=== PATIENT | female | born 1990 | race American Indian/Alaskan Native ===

== ENCOUNTER 2021-08-06 15:23 | Inpatient (IN) | payer MEDICAID ==
[~2021-08-06] VITALS: Ht 165.1 cm; Wt 50.8 kg
[2021-08-06] MEDS ORDERED: Insulin Reg/NS 100units/100mL 100 ML IV SCH ×2 (15:50→19:10)
[2021-08-06] MEDS ORDERED: insulin regular, human U-100 3ml vial - multi-dose IV PRN ×3 (15:50→19:40)
[2021-08-06] MEDS ORDERED: ondansetron/PF 4mg/2ml inj IV ONE (15:50)
[2021-08-06] MEDS ORDERED: normal saline 1000ML IV soln IV ONE (15:50)
[2021-08-06 16:23] LABS: ABG BASE EXCESS -19.6 mmol/L (-2.0-2.0); ABG HCO3 5.4 mmol/L (22.0-26.0); ABG PCO2 (T) 13.1 mmHg (32.0-45.0); ABG PO2 (T) 99.2 mmHg (75.0-100.0); ALLEN'S TEST POSITIVE; FCOHb 0.9 % (0.0-3.9); FMetHb 0.3 % (0.0-1.5); FO2Hb 94.8 % (94-97); TOTAL HEMOGLOBIN 12.1 G/dl (12.0-16.0)
[2021-08-06 16:30] LABS: BASOPHILS # (AUTO) 0.1 X10'3 (0-0.2); BASOPHILS % (AUTO) 0.5 % (0-1); EOSINOPHILS % (AUTO) 0.1 % (0-6); LYMPHOCYTES # (AUTO) 2.8 X10'3 (1.1-4.8); LYMPHOCYTES % (AUTO) 15.8 % (21-51); MONOCYTES # (AUTO) 1.5 X10'3 (0-0.9); MONOCYTES % (AUTO) 8.4 % (2-12); NEUTROPHILS # (AUTO) 13.6 X10'3 (1.8-7.7); NEUTROPHILS % (AUTO) 75.2 % (42-75)
--- NOTE | 2021-08-06 16:42 | NUR ---
[facility] [place] [phone]
[2021-08-06] MEDS ORDERED: metoclopramide 5 mg/ml inj IV ONE (16:45)
[2021-08-06 16:52] LABS: CLARITY,URINE CLEAR (Clear); COLOR,URINE YELLOW (Yellow); GLUCOSE, URINE >=1000 mg/dl (Neg); KETONES,URINE >=80 mg/dl (Neg); LEUKOCYTE ESTERASE ,URINE NEGATIVE (Neg); NITRITES, URINE NEGATIVE (Neg); OCCULT BLOOD,URINE NEGATIVE (Neg); PH,URINE 5.5 (4.8-8.0); PROTEIN,URINE NEGATIVE (Neg); UROBILINOGEN,URINE 0.2 E.U/dL (0.2-1.0)
[2021-08-06 16:53] LABS: ALANINE AMINOTRANSFERASE 203 U/L (12-78); ALBUMIN 3.7 G/DL (3.4-5.0); ALBUMIN/GLOBULIN RATIO 0.9 (1.1-1.5); ALKALINE PHOSPHATASE 144 IU/L (46-116); ANION GAP 35 (8-16); ASPARTATE AMINO TRANSFERASE 92 U/L (10-37); BILIRUBIN,TOTAL 0.9 MG/DL (0.1-1.0); BLOOD UREA NITROGEN 37 MG/DL (7-18); BUN/CREATININE RATIO 17.1 (6.6-38.0); CALCIUM 8.9 MG/DL (8.5-10.1); CHLORIDE 84 MMOL/L (99-107); CREATININE 2.16 MG/DL (0.40-0.90); ETHANOL < 0.010 GM/DL (0.0-0.010); MAGNESIUM 2.7 MG/DL (1.5-2.4); PHOSPHORUS 6.8 MG/DL (2.3-4.5); SODIUM 128 MMOL/L (135-145); TOTAL PROTEIN 7.9 G/DL (6.4-8.2); eGFR 27 ML/MIN
--- NOTE | 2021-08-06 16:54 | NUR ---
cosme (Friend) has keys to car. [phone]
[2021-08-06 16:56] LABS: URINE AMPHETAMINE SCREEN POSITIVE (Neg); URINE BARBITUATE SCREEN NEGATIVE (Neg); URINE BENZODIAZEPINES SCREEN NEGATIVE (Neg); URINE CANNABINOID SCREEN NEGATIVE (Neg); URINE COCAINE SCREEN NEGATIVE (Neg); URINE METHADONE SCREEN NEGATIVE (Neg); URINE OPIATE SCREEN NEGATIVE (Neg); URINE PHENCYCLIDINE SCREEN NEGATIVE (Neg)
[2021-08-06 16:58] LABS: UA COLLECTION TYPE STRAIGHT CATH
[2021-08-06 17:07] LABS: RBC,URINE NONE SEEN /HPF (0-2); WBC,URINE NONE SEEN /HPF (0-4)
[2021-08-06 17:08] LABS: AMORPHOUS URATES 1+; BACTERIA,URINE NONE SEEN /HPF (Neg); SQUAMOUS EPITHELIAL CELL,UR MODERATE /LPF (FEW)
[2021-08-06 17:09] LABS: HEMATOCRIT 35.1 % (35.0-45.0); HEMOGLOBIN 11.9 g/dl (12.0-16.0); MEAN CORPUSCULAR HEMOGLOBIN 30.6 PG (27.0-31.0); MEAN PLATELET VOLUME 6.3 FL (7.4-10.4); PLATELET COUNT 509 X10'3 (140-440); RED CELL DISTRIBUTION WIDTH 12.7 % (11.5-14.5); WHITE BLOOD COUNT 18.4 X10'3 (4.5-11.0)
[2021-08-06 17:32] LABS: URINE HCG NEGATIVE (NEG)
[2021-08-06 17:34] LABS: GLUCOSE 921 MG/DL (70-104)
[2021-08-06 17:35] LABS: POTASSIUM 7.6 MMOL/L (3.5-5.1); TOTAL CARBON DIOXIDE 9.1 MMOL/L (24-32)
[2021-08-06] MEDS ORDERED: sodium bicarbonate (8.4%) inj. 50 MEQ in dextrose 5%-water 1,000 ML IV ONE (17:50)
[2021-08-06] MEDS ORDERED: potassium Cl 40MEQ/1/2NS 520ml 520 ML IV PRN ×2 (19:10)
[2021-08-06] MEDS ORDERED: Neutra Phos packet PO PRN (19:10)
[2021-08-06] MEDS ORDERED: sodium phosphate inj. 15 MMOL in dextrose 5%-water 250 ML IV PRN (19:10)
[2021-08-06] MEDS ORDERED: acetaminophen 325mg tablet PO PRN ×2 (19:10)
[2021-08-06] MEDS ORDERED: sodium bicarbonate (8.4%) inj. 100 MEQ in dextrose 5% water 500ml 500 ML IV PRN (19:10)
[2021-08-06] MEDS ORDERED: POTASSIUM BICARB 20meq eff tab 20 MEQ TABLET.EFF PO PRN ×2 (19:10)
[2021-08-06] MEDS ORDERED: sodium phosphate inj. 30 MMOL in dextrose 5%-water 250 ML IV PRN (19:10)
[2021-08-06] MEDS ORDERED: potassium CL 20mEq in D5-1/2NS 1,000 ML IV PRN (19:10)
[2021-08-06] MEDS ORDERED: magnesium hydroxide 30ml (MOM) UD suspension PO PRN (19:10)
[2021-08-06] MEDS ORDERED: potassium Cl 20 mEq SR tablet PO PRN ×2 (19:10)
[2021-08-06] MEDS ORDERED: sodium bicarbonate (8.4%) inj. 50 MEQ in dextrose 5% water 500ml 250 ML IV PRN (19:10)
[2021-08-06] MEDS: normal saline 1000ml 1,000 ML IV SCH ×8 (19:18→23:50)
--- NOTE | 2021-08-06 19:53 | NUR ---
BS not falling - per protocol insulin bolus given along with rate increased.
[2021-08-06] MEDS ORDERED: K and/or MAG REPLACEMENT MC SCH (20:00)
[2021-08-06] MEDS ORDERED: enoxaparin 40mg/0.4ml syringe SQ SCH (20:00)
--- NOTE | 2021-08-06 23:35 | NUR ---
Pharmacist consulted on compatability of IV medications (Bicarb, K+ fluids, and Insulin). Pharmacist stated okay to use [place]ton K+ fluids with either Bicarb or Insulin.
[2021-08-06] MEDS: potassium CL 20mEq in D5-1/2NS 1,000 ML IV PRN (23:50)
[2021-08-07] VITALS (12 sets, daily range): BP systolic 98–161; BP diastolic 47–77
[2021-08-07 00:07] LABS: ALANINE AMINOTRANSFERASE 167 U/L (12-78); ALBUMIN 2.9 G/DL (3.4-5.0); ALBUMIN/GLOBULIN RATIO 0.8 (1.1-1.5); ALKALINE PHOSPHATASE 117 IU/L (46-116); ANION GAP 20 (8-16); ASPARTATE AMINO TRANSFERASE 68 U/L (10-37); BILIRUBIN,TOTAL 0.5 MG/DL (0.1-1.0); BLOOD UREA NITROGEN 27 MG/DL (7-18); BUN/CREATININE RATIO 15.7 (6.6-38.0); CALCIUM 7.7 MG/DL (8.5-10.1); CHLORIDE 110 MMOL/L (99-107); CREATININE 1.72 MG/DL (0.40-0.90); GLUCOSE 210 MG/DL (70-104); MAGNESIUM 2.1 MG/DL (1.5-2.4); PHOSPHORUS 2.3 MG/DL (2.3-4.5); POTASSIUM 3.9 MMOL/L (3.5-5.1); SODIUM 147 MMOL/L (135-145); TOTAL CARBON DIOXIDE 17.3 MMOL/L (24-32); TOTAL PROTEIN 6.5 G/DL (6.4-8.2); eGFR 35 ML/MIN
[2021-08-07] MEDS: normal saline 1000ml 1,000 ML IV SCH ×6 (00:10→00:49)
--- NOTE | 2021-08-07 00:20 | NUR ---
Patient here from ER into room CICU 2011. I have received report from Jose TENORIO and had the opportunity to ask questions and assume patient care. Transferred patient from [facility] to ICU bed,attached to cardiac rn. Patient denies pain or nausea. Vital signs stable, sats 95% on RA. IV meds infusing via peripheral IVs.
[2021-08-07] MEDS: ondansetron/PF 4mg/2ml inj IV PRN ×2 (01:42→07:22)
[2021-08-07] MEDS ORDERED: dexmedetomidin/NS 400mcg/100ml 100 ML IV PRN (02:20)
[2021-08-07] MEDS ORDERED: haloperidol lactate 5mg/ml inj IM PRN (02:20)
--- NOTE | 2021-08-07 02:20 | NUR ---
patient restless, agitated, wanting to leave AMA. Educated patient on the importance of continuing the current plan of care. Patient agreed to stay and continue treatment. Dr. Doll notified, orders received.
[2021-08-07] MEDS: potassium CL 20mEq in D5-1/2NS 1,000 ML IV PRN (05:38)
[2021-08-07 06:14] LABS: BASOPHILS % (AUTO) 0.2 % (0-1); EOSINOPHILS % (AUTO) 0.3 % (0-6); HEMATOCRIT 31.5 % (35.0-45.0); HEMOGLOBIN 10.4 g/dl (12.0-16.0); LYMPHOCYTES # (AUTO) 3.8 X10'3 (1.1-4.8); LYMPHOCYTES % (AUTO) 23.9 % (21-51); MEAN CORPUSCULAR VOLUME 90.8 FL (78-98); MEAN PLATELET VOLUME 5.9 FL (7.4-10.4); MONOCYTES # (AUTO) 1.4 X10'3 (0-0.9); MONOCYTES % (AUTO) 8.9 % (2-12); NEUTROPHILS # (AUTO) 10.5 X10'3 (1.8-7.7); NEUTROPHILS % (AUTO) 66.7 % (42-75); PLATELET COUNT 387 X10'3 (140-440); RED BLOOD COUNT 3.47 X10'6 (4.20-5.60); RED CELL DISTRIBUTION WIDTH 13.3 % (11.5-14.5); WHITE BLOOD COUNT 15.7 X10'3 (4.5-11.0)
[2021-08-07 06:18] LABS: ALANINE AMINOTRANSFERASE 132 U/L (12-78); ALBUMIN 2.4 G/DL (3.4-5.0); ALBUMIN/GLOBULIN RATIO 0.8 (1.1-1.5); ALKALINE PHOSPHATASE 96 IU/L (46-116); ANION GAP 6 (8-16); ASPARTATE AMINO TRANSFERASE 64 U/L (10-37); BILIRUBIN,TOTAL 0.4 MG/DL (0.1-1.0); BLOOD UREA NITROGEN 22 MG/DL (7-18); BUN/CREATININE RATIO 16.1 (6.6-38.0); CALCIUM 7.2 MG/DL (8.5-10.1); CHLORIDE 109 MMOL/L (99-107); CREATININE 1.37 MG/DL (0.40-0.90); GLUCOSE 127 MG/DL (70-104); MAGNESIUM 1.9 MG/DL (1.5-2.4); PHOSPHORUS 1.5 MG/DL (2.3-4.5); POTASSIUM 3.3 MMOL/L (3.5-5.1); SODIUM 139 MMOL/L (135-145); TOTAL CARBON DIOXIDE 23.8 MMOL/L (24-32); TOTAL PROTEIN 5.5 G/DL (6.4-8.2); eGFR 46 ML/MIN
--- NOTE | 2021-08-07 06:18 | NUR ---
Problems reprioritized. Patient report given, questions answered & plan of care reviewed with Satish TENORIO.
[2021-08-07] MEDS ORDERED: sodium phosphate inj. 15 MMOL in dextrose 5%-water 250 ML IV PRN (06:50)
[2021-08-07] MEDS ORDERED: sodium phosphate inj. 30 MMOL in dextrose 5% water 500ml 500 ML IV PRN (06:50)
[2021-08-07] MEDS ORDERED: fentaNYL/PF 50MCG/1 ML 2ML syringe IV PRN (07:55)
[2021-08-07] MEDS ORDERED: DEXTROSE 15 GM of carb/4 tabs (each vial/BOTTLE has 4 tablets) PO PRN ×2 (07:55)
[2021-08-07] MEDS ORDERED: dextrose 50%-water 50ml dispensing syringe IV PRN ×2 (07:55)
[2021-08-07] MEDS ORDERED: insulin regular, human U-100 3ml vial - multi-dose SQ SCH (07:55)
[2021-08-07] MEDS ORDERED: glucagon, human recombinant 1mg kit SUBCUT PRN (07:55)
[2021-08-07] MEDS ORDERED: insulin Lispro (HumaLOG) vial - multi-dose SQ SCH (07:55)
[2021-08-07] MEDS ORDERED: K and/or MAG REPLACEMENT MC SCH (08:00)
--- NOTE | 2021-08-07 08:05 | NUR ---
Pt agitated and reports she's withdrawing. MD called and notified, will give dose of fentanyl.
[2021-08-07] MEDS ORDERED: fentaNYL/PF 50MCG/1 ML 2ML syringe ONE (08:08)
--- NOTE | 2021-08-07 08:30 | NUR ---
Pt tore out IVs and persistent on leaving AMA. MD notified.
[2021-08-07] MEDS ORDERED: fentaNYL/PF 50MCG/1 ML 2ML syringe IV ONE (09:00)
[2021-08-07] MEDS ORDERED: ondansetron 4mg rapidly disintigrating tab PO PRN (09:45)
[2021-08-07] MEDS ORDERED: buprenorphine/naloxone 8MG-2MG SUBlingual film SL PRN (09:45)
--- NOTE | 2021-08-07 11:02 | NUR ---
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 Glu 921mg/dl on admit down to 98mg/dl this AM though has returned to 300's off insulin drip now to restart DKA protocol per help desk representative at rounds. Receiving electrolyte replacement per protocol. Pt pulled IV's attempted to leave AMA once this AM per RN. Pt retching/nausea taking in some liquids only few bites first carb controlled breakfast this AM per RN. PO diet to continue per help desk representative. RD d/w RN regarding A1C this admit as none yet if MD agreeable. D5/half NS/Potassium to start at 100ml/hr per help desk representative; will provide 408 kcals/day. Will monitor for PO tolerance and further nutrition intervention needs this admit. Rec: 1. continue carb controlled diet per MD 2. monitor for PO acceptance and ONS needs as GI symptoms resolve 3. bowel care per rx 4. weekly wts 5. DM ed pending A1C and pt appropriateness this admit Addendum: 08/07/21 at [address] Amended: Links added.
[2021-08-07 11:23] LABS: HEMOGLOBIN A1C 12.6 % (4.5-6.2)
[2021-08-07] MEDS ORDERED: buprenorphine/naloxone 8MG-2MG SUBlingual film SL STA (11:51)
--- NOTE | 2021-08-07 12:00 | NUR ---
Attempted to insert extended piv x2 but unable to thread. Tolerated well. Pt. cooperative but decided she wanted to leave ama.
--- NOTE | 2021-08-07 12:12 | NUR ---
Pt decided to leave AMA after multiple healthcare providers tried convincing otherwise. Pt left unit at 1212pm 08/07/2021. All pt belongings accounted for prior to leaving unit.
[2021-08-07 12:17] LABS: ALBUMIN 2.5 G/DL (3.4-5.0); ANION GAP 24 (8-16); BLOOD UREA NITROGEN 21 MG/DL (7-18); BUN/CREATININE RATIO 13.2 (6.6-38.0); CALCIUM 7.6 MG/DL (8.5-10.1); CHLORIDE 103 MMOL/L (99-107); CREATININE 1.59 MG/DL (0.40-0.90); GLUCOSE 373 MG/DL (70-104); PHOSPHORUS 1.6 MG/DL (2.3-4.5); POTASSIUM 3.9 MMOL/L (3.5-5.1); SODIUM 138 MMOL/L (135-145); eGFR 38 ML/MIN
[2021-08-07 12:21] LABS: TOTAL CARBON DIOXIDE 11.4 MMOL/L (24-32)
[2021-08-07] MEDS ORDERED: dextrose 5%-1/2 normal saline 1,000 ML IV SCH (12:28)
[2021-08-07] MEDS ORDERED: NS IV SCH ×2 (12:30)
[2021-08-07] MEDS ORDERED: HUMAN IV SCH ×2 (12:30)
[2021-08-07] MEDS ORDERED: INSULIN REGULAR IV SCH ×2 (12:30)
[2021-08-07] MEDS ORDERED: insulin glargine (Lantus) pen - multi-dose SQ SCH (21:00)
[2021-08-08] MEDS ORDERED: buprenorphine/naloxone 8MG-2MG SUBlingual film SL SCH (08:00)
== END 2021-08-07 12:28 | disposition left against medical advice (07) | DRG 420 ==
LOC: ER 15:24 → ED HOLD 19:22 → EDBEDREQSVC 23:08 → EDBEDREQ 23:08 → CICU 2S 08-07 00:02
PROVIDERS: ADMIT Internal Medicine Critical Care Medicine; ATTEND Internal Medicine Critical Care Medicine
DX: E10.10 Type 1 diabetes mellitus with ketoacidosis without coma (principal); G93.41 Metabolic encephalopathy; N17.9 Acute kidney failure, unspecified; R65.10 Systemic inflammatory response syndrome (SIRS) of non-infectious origin without acute organ dysfunction; I95.9 Hypotension, unspecified; D72.829 Elevated white blood cell count, unspecified; E86.0 Dehydration; Z53.29 Procedure and treatment not carried out because of patient's decision for other reasons; E87.5 Hyperkalemia; Z20.822 Contact with and (suspected) exposure to COVID-19; R47.81 Slurred speech; R74.01 Elevation of levels of liver transaminase levels; R79.89 Other specified abnormal findings of blood chemistry; E87.6 Hypokalemia; F11.23 Opioid dependence with withdrawal; F15.10 Other stimulant abuse, uncomplicated; F41.9 Anxiety disorder, unspecified; Z91.19 Patient's noncompliance with other medical treatment and regimen; Z56.0 Unemployment, unspecified; Z79.4 Long term (current) use of insulin
CPT/HCPCS: 36410; 36415; 36600; 71045; 76937; 80048; 80053; 80305; 80320; 81001; 81025; 82009; 82803; 82948; 83036; 83605; 83735; 84100; 84145; 85018; 85025; 87040; 87081; 87635; 93005; 96365; 96366; 96368; 96375; 99291; A4333; A6213; A6258; C1751; G0378; J1815; J2405; J2765; J3010; J3480; J3490; J7030; J7050; J7060; J7070